=== PATIENT | female | born 1985 | race Caucasian/White ===

== ENCOUNTER 2017-07-21 20:08 | Emergency (ER) | payer OTHER, SELFPAY | END 2017-07-21 20:37 | disposition home or self-care (01) | LOC: SCSER 20:08 | DX: J02.9 Acute pharyngitis, unspecified (principal); H92.01 Otalgia, right ear; I10 Essential (primary) hypertension; F41.9 Anxiety disorder, unspecified; F32.9 Major depressive disorder, single episode, unspecified; Z85.42 Personal history of malignant neoplasm of other parts of uterus | CPT/HCPCS: 87081; 87430; 99283 ==

== ENCOUNTER 2019-12-28 13:00 | Outpatient (CLI) | payer BC | END 2019-12-28 13:01 | disposition home or self-care (01) | LOC: DTY/OP 13:00 | PROVIDERS: ATTEND Specialist | DX: Z01.818 Encounter for other preprocedural examination (principal); E66.01 Morbid (severe) obesity due to excess calories | CPT/HCPCS: 97802 ==

== ENCOUNTER 2020-04-16 07:35 | Outpatient (CLI) | payer BC, OTHER ==
[2020-04-17 14:58] LABS: SARS-CoV-2 MS2 Positive; SARS-CoV-2 N Gene Negative; SARS-CoV-2 S Gene Negative; SARS-CoV-2 by NAA Not Detected (NotDetected); SARS-CoV-2 orf1ab Negative
--- NOTE | 2020-04-17 16:16 | EKG ---
Test Reason : PREOP Blood Pressure : / mmHG Vent. Rate : 070 BPM Atrial Rate : 070 BPM P-R Int : 136 ms QRS Dur : 096 ms QT Int : 402 ms P-R-T Axes : 027 024 043 degrees QTc Int : 434 ms Normal sinus rhythm Normal ECG No previous ECGs available Confirmed by ARINA MARSHALL ([id number]) on 04/17/2020 4:15:45 PM Referred By: Kathe PURVIS Confirmed By:ARINA MARSHALL
== END 2020-04-16 07:36 | disposition home or self-care (01) ==
LOC: LABBT 07:35
PROVIDERS: ATTEND Specialist
DX: Z01.818 Encounter for other preprocedural examination (principal); E66.01 Morbid (severe) obesity due to excess calories; Z68.42 Body mass index [BMI] 45.0-49.9, adult; Z20.828 Contact with and (suspected) exposure to other viral communicable diseases
CPT/HCPCS: 87635; 93005; 93010; U0003

== ENCOUNTER 2020-04-16 10:15 | Inpatient (IN) | payer BC, OTHER ==
[2020-04-17 15:37] VITALS: BMI 49.8
[2020-04-19] MEDS ORDERED: Acetaminophen 500 MG TAB ONE (06:23)
[2020-04-19] MEDS ORDERED: Heparin 5,000 UNITS/ML VIAL ONE (06:23)
[2020-04-19] MEDS ORDERED: cefOXitin Sodium/Dextrose 2 GM/50 ML BAG ONE (06:23)
[2020-04-19] MEDS ORDERED: Scopolamine 1.5 mg/72 hour Patch ONE (06:23)
[2020-04-19] MEDS ORDERED: ceFOXitin 1 GM VIAL ONE (06:23)
[2020-04-19] MEDS ORDERED: Sodium Chloride 0.9% 0 ML ONE (06:23)
[2020-04-19] MEDS ORDERED: Ketorolac Tromethamine 30 MG/ML VIAL ONE (06:23)
[2020-04-19] MEDS ORDERED: Lidocaine 1% w/Epinephrine 1:100K 20 ML VIAL ONE (06:29)
[2020-04-19] MEDS ORDERED: Bupivacaine 0.25% HCL 30 ML VIAL ONE (06:30)
[2020-04-19] MEDS ORDERED: Fentanyl 250 MCG/5 ML VIAL ONE (06:51)
[2020-04-19] MEDS ORDERED: Midazolam HCl 2 mg/2 ml Vial ONE (07:12)
[2020-04-19] MEDS ORDERED: Dextrose 50% Abboject 50 ML SYRINGE SLOW IVP PRN (09:25)
[2020-04-19] MEDS ORDERED: Ondansetron PF 4 MG/2 ML Vial IVP PRN (09:25)
[2020-04-19] MEDS ORDERED: Dextrose 5% in Water 1,000 ML IV PRN (09:25)
[2020-04-19] MEDS ORDERED: Promethazine HCl 25 MG/ML VIAL IM PRN ×2 (09:25→09:42)
[2020-04-19] MEDS ORDERED: Morphine 4 MG/ML VIAL SLOW IVP PRN (09:25)
[2020-04-19] MEDS ORDERED: diphenhydrAMINE 50 MG/ML VIAL IVP PRN (09:25)
[2020-04-19] MEDS ORDERED: Morphine 2 MG/ML VIAL SLOW IVP PRN (09:25)
[2020-04-19] MEDS ORDERED: hydrALAZINE 20 MG/ML VIAL SLOW IVP PRN (09:25)
[2020-04-19] MEDS ORDERED: HYDROmorphone 2 MG/ML VIAL SLOW IVP PRN (09:42)
[2020-04-19] MEDS ORDERED: Promethazine HCl 25 MG/ML VIAL SLOW IVP PRN (09:42)
[2020-04-19] MEDS ORDERED: Meperidine HCl/PF 25 MG/ML VIAL SLOW IVP PRN (09:42)
[2020-04-19] MEDS ORDERED: Ondansetron HCl/PF 4 MG/2 ML Vial IVP PRN (09:42)
[2020-04-19] MEDS ORDERED: Pantoprazole 40 MG VIAL IVP SCH (09:45)
[2020-04-19] MEDS ORDERED: Sodium Chloride 0.9% (PF) 10 ML VIAL FS PRN (09:45)
[2020-04-19] MEDS ORDERED: Fentanyl 100 MCG/2 ML VIAL ONE ×2 (09:49→10:06)
[2020-04-19] MEDS ORDERED: Ondansetron PF 4 MG/2 ML Vial ONE ×2 (09:52→11:02)
[2020-04-19] MEDS ORDERED: Promethazine HCl 25 MG/ML VIAL ONE (10:42)
[2020-04-19] MEDS ORDERED: Succinylcholine Chloride 20 MG/ML 10 ml SYRINGE FS ONE (11:02)
[2020-04-19] MEDS ORDERED: Glycopyrrolate 0.2 MG/ML 5 ML SYRINGE ONE (11:02)
[2020-04-19] MEDS ORDERED: Dexamethasone 20 MG/5 ML VIAL ONE (11:02)
[2020-04-19] MEDS ORDERED: Rocuronium Bromide 10 MG/ML (10ML VIAL) ONE (11:02)
[2020-04-19] MEDS ORDERED: Lidocaine 1% PF 5 ML VIAL ONE (11:02)
[2020-04-19] MEDS ORDERED: PROPOFOL 200 MG/20 ML VIAL ONE (11:02)
[2020-04-19] MEDS: Ketorolac Tromethamine 30 MG/ML VIAL IVP SCH ×2 (12:31→16:52)
[2020-04-19] MEDS: D5 1/2 NS w/20 mEq KCL 1,000 ML IV SCH ×4 (12:31→20:27)
--- NOTE | 2020-04-19 13:33 | OP ---
DATE OF PROCEDURE: 04/19/2020 PREOPERATIVE DIAGNOSIS: Morbid obesity. POSTOPERATIVE DIAGNOSIS: Morbid obesity. PROCEDURE PERFORMED: Laparoscopic vertical sleeve gastrectomy using the ViSiGi Device. J[employer] J2[employer] LEAD: Lakisha Granados, medical student. ANESTHESIA: General endotracheal per Keegan Cohn CRNA. INDICATIONS: The patient is a 34-year-old morbidly obese white female. She presents today for bariatric surgery, having completed preoperative evaluation and education. DESCRIPTION OF OPERATION: Informed consent was obtained. The patient was taken to the operating room where general endotracheal anesthesia was obtained with the patient in supine position. Abdomen was prepped with ChloraPrep and draped in sterile fashion. Local anesthetic was infiltrated and 5 mm supraumbilical incision was created through which Veress needle was passed to the peritoneal cavity and pneumoperitoneum established using carbon dioxide up to a pressure of 15 mmHg. A 5 mm trocar port was passed through this same incision. Laparoscopic camera was passed through this port. Under direct vision, 4 additional ports were placed including bilateral 5 mm subcostal ports, a 12 mm right paramedian port and a 15 mm left paramedian port. A 5 mm epigastric incision was created through which Nathansen retractor was passed into the abdominal cavity and used to retract the left lobe of the liver. The patient was placed into reverse Trendelenburg position. The ViSiGi device was advanced within the stomach and used to decompress this. The pylorus was identified and beginning 4 cm proximal to the pylorus, the omentum and vascular tissue along the greater curvature was divided using the LigaSure in an ascending fashion up to the angle of His. All posterior adhesions were mobilized. The short gastric vessels were carefully divided and then hemostasis was maintained using the LigaSure. Once this was completely mobilized, the ViSiGi was carefully positioned at the level of the pylorus and placed to suction, which was clearly defining the lesser curvature of the stomach. The gastrectomy was then performed using a series of fires of the Thornton stapler using a green load followed by a gold load and a series of blue loads until completion of the gastrectomy. The ViSiGi along the lesser curvature was used as a size 36 bougie to guide in the gastric division. Care was taken to avoid narrowing the incisura or the gastroesophageal junction. The integrity of the staple line was then assessed by insufflating gas through the ViSiGi while irrigating along the staple line. There was no evidence of an air leak. There was no evidence of bleeding along the staple line. The resected stomach was then removed through the 15 mm port and the fascia was closed with 0 Vicryl suture using a GraNee needle. I then closed the 12 mm port also using the GraNee needle and 0 Vicryl suture. The Nathansen retractor was removed. All ports and instruments were removed under direct vision. All irrigant was aspirated. Pneumoperitoneum was carefully evacuated. 0.25% Marcaine with epinephrine was infiltrated into each port site. Skin edges approximated with 4-0 Monocryl subcuticular suture. Dermabond was placed externally. There were no complications. The patient tolerated the procedure well and was taken to recovery room in stable condition. FINDINGS: The patient had some minor adhesions inferior to abdominal wall, but nothing that interfered with the surgery. There was some minor oozing from the superior pole of the spleen after the short gastrics were divided. Marii powder was used to control this successfully. Total blood loss was negligible. She tolerated the procedure well and was taken to recovery room in stable condition. Job ID: [id number]
[2020-04-19] MEDS ORDERED: Prochlorperazine 10 MG/2 ML VIAL IVP PRN (13:50)
[2020-04-19] MEDS: Hydrocodone-Acetamin 15 ML UDCUP PO PRN ×2 (15:03→18:50)
[2020-04-19] MEDS ORDERED: Enoxaparin Sodium 40 MG/0.4 ML SYRINGE SC SCH (21:00)
[2020-04-20] MEDS: Ketorolac Tromethamine 30 MG/ML VIAL IVP SCH ×2 (00:25→05:26)
[2020-04-20 05:23] LABS: #Lymphocytes 1.1 thou/uL (1.20-3.40); #Monocytes 0.7 thou/uL (0.11-0.59); #Neutrophils 5.9 thou/uL (1.40-6.50); %Basophils 0.2 % (0.0-1.0); %Eosinophils 0.1 % (0.0-10.0); %Lymphocytes 14.1 % (21.0-51.0); %Monocytes 8.8 % (0.0-10.0); %Neutrophils 76.8 % (42.0-75.0); Mean Corpuscular Hemoglobin 29.7 pg (27.0-31.0); Mean Corpuscular Volume 87.2 fL (78.0-98.0); Mean Platelet Volume 8.6 fL (7.4-10.4); Platelet Count 233 thou/uL (130-400); RBC Distribution Width 12.2 % (11.5-14.5); Red Blood Cell (RBC) Count 4.05 mill/uL (4.20-5.40); White Blood Cell (WBC) Count 7.6 thou/uL (4.8-10.8)
[2020-04-20 05:43] LABS: Anion Gap 11 mmol/L (10-20); BUN (Urea Nitrogen) 7 mg/dL (7.0-18.7); Calc. Creatinine Clearance 196 mL/min (70-130); Calcium 8.7 mg/dL (7.8-10.44); Carbon Dioxide 21 mmol/L (22-29); Chloride 110 mmol/L (98-107); Estimated GFR-MDRD 78; Glucose 125 mg/dL (70-105); Potassium 4.1 mmol/L (3.5-5.1); Sodium 138 mmol/L (136-145)
--- NOTE | 2020-04-20 07:46 | PDOC.GSPN ---
Surgery Progress Note: Subj - Subjective Patient reports: positive flatus, tolerating liquids well, voiding w/o difficult y (Ms. Swartz is a 34 year old morbidly obese female who is POD 1 for LSG. Patient stated she is doing well and tolerating her liquid diet. Patient stated her pain has been well controlled with her medication, but pain is rated at a 7 out of 10 currently while waiting for the next dose of pain medication), nausea, no bowel movement, still having pain Surgery Progress Note: Obj - Vital signs Vital signs: Vital Signs - Most Recent Temp Pulse Resp BP Pulse Ox 98.3 F 67 18 105/70 97 04/20/20 04:00 04/20/20 04:00 04/20/20 04:00 04/20/20 04:00 04/20/20 04:00 - Physical Exam General: no distress, well nourished, moderate pain, obese ENT: no congestion, no hearing loss, normal nares Cardiovascular: regular rate and rhythm Respiratory: clear to auscultation, normal respiratory effort, breath sounds present Abdomen: positive bowel sounds Psychiatric: memory intact, oriented to time, oriented to person, oriented to place, speech is normal Wound: healing well Surgery Progress Note: Results - Labs Result Diagrams: 04/20/20 04:55 04/20/20 04:55 Lab results: Laboratory Results - last 24 hr 04/20/20 04/20/20 04:55 04:55 WBC 7.6 RBC 4.05 L Hgb 12.0 Hct 35.3 L MCV 87.2 MCH 29.7 MCHC 34.0 RDW 12.2 Plt Count 233 MPV 8.6 Neutrophils % 76.8 H Lymphocytes % 14.1 L Monocytes % 8.8 Eosinophils % 0.1 Basophils % 0.2 Neutrophils # 5.9 Lymphocytes # 1.1 L Monocytes # 0.7 H Eosinophils # 0.0 Basophils # 0.0 Sodium 138 Potassium 4.1 Chloride 110 H Carbon Dioxide 21 L Anion Gap 11 BUN 7 Creatinine 0.83 Estimated GFR (MDRD) 78 Glucose 125 H Calcium 8.7 Surgery Progress Note: A/P - Problem (1) Morbid obesity Current Visit: Yes Code(s): E66.01 - MORBID (SEVERE) OBESITY DUE TO EXCESS CALORIES Status: Chronic (2) S/P laparoscopic sleeve gastrectomy Current Visit: Yes Code(s): Z98.84 - BARIATRIC SURGERY STATUS Status: Acute - Plan Plan: Ms. Swartz is is a 34 year old morbidly obese female POD 1 for LSG. Patient is recovering well from surgery and is in no acute distress. 1. Continue patient on DVT prophylaxis: enoxaparin, SCDs, and promoting ambulation. 2. Continue patient on liquid diet 3. Continue to monitor patient's pain level and control with PRN/scheduled pain medications 4. Patient can be discharged today as she is able to ambulate, maintain hydration, and tolerate her medication 5. Before discharge review proper LSG diet and follow up in clinic in one month
[2020-04-20] MEDS ORDERED: Pantoprazole 40 MG VIAL IVP SCH (09:00)
[2020-04-20 11:31] VITALS: BP 104/71; TEMP 97.8
[2020-04-20] MEDS: Hydrocodone-Acetamin 15 ML UDCUP PO PRN (11:36)
== END 2020-04-20 13:05 | disposition home or self-care (01) | DRG 621 ==
LOC: SURG A 04-19 05:59 → SJJU 04-19 11:10
PROVIDERS: ADMIT Specialist; ATTEND Specialist
PROC: 0DB64Z3 Excision of Stomach, Percutaneous Endoscopic Approach, Vertical (ICD-10-PCS; principal; 2020-04-19)
DX: E66.01 Morbid (severe) obesity due to excess calories (principal); Z68.42 Body mass index [BMI] 45.0-49.9, adult; Z90.710 Acquired absence of both cervix and uterus; Z20.828 Contact with and (suspected) exposure to other viral communicable diseases
CPT/HCPCS: 36415; 80048; 85025; 87635; 88307; 88312; 93005; 94760; C9113; J0694; J1100; J1644; J1650; J1885; J2250; J2270; J2405; J2550; J2704; J3010; J3480; J3490; S0020; U0003

== ENCOUNTER 2024-07-20 16:21 | Inpatient (IN) | payer BC ==
[~2024-07-20 16:21] MED LIST: Iopamidol-370 76% 500 ML MDV (1 ML CHARGE) ONE
[2024-07-20 17:42] LABS: #Basophils 0.03 10x3/uL (0.0-0.2); %Basophils 0.6 % (0.0-1.0); %Lymphocytes 24.9 % (21.0-51.0); %Neutrophils 64.3 % (42.0-75.0); Hematocrit 39.7 % (36.0-47.0); Hemoglobin 14.1 g/dL (12.0-16.0); Mean Corpuscular HGB CONC 35.5 g/dL (32.0-36.0); Mean Corpuscular Hemoglobin 29.1 pg (27.0-31.0); Mean Corpuscular Volume 81.9 fL (78.0-98.0); Mean Platelet Volume 10.3 fL (7.4-10.4); Platelet Count 266 10x3/uL (130-400); RBC Distribution Width 11.9 % (11.5-14.5); Red Blood Cell (RBC) Count 4.85 mill/uL (4.20-5.40)
[2024-07-20 17:54] LABS: BHCG - Serum Negative (NEGATIVE)
[2024-07-20 17:55] LABS: Pregs Control Background? CLEAR/WHITE (CLR/WHITE); Pregs Control Bar Appear? YES (CONTROL BAR)
[2024-07-20 18:01] LABS: ALT (SGPT) 150 U/L (8-55); AST (SGOT) 181 U/L (5-34); Albumin 4.2 g/dL (3.5-5.0); Alkaline Phosphatase 97 U/L (40-110); Anion Gap 12 mmol/L (10-20); BUN (Urea Nitrogen) 10 mg/dL (7.0-18.7); Bilirubin, Total 2.1 mg/dL (0.2-1.2); Calc. Creatinine Clearance 0 mL/min (70-130); Calcium 9.6 mg/dL (7.8-10.44); Carbon Dioxide 25 mmol/L (22-29); Chloride 108 mmol/L (98-107); Estimated GFR 95; Globulin 3.5 g/dL (2.4-3.5); Glucose 79 mg/dL (70-105); Lipase 77 U/L (8-78); Potassium 3.6 mmol/L (3.5-5.1); Protein, Total 7.7 g/dL (6.0-8.3); Sodium 141 mmol/L (136-145)
[2024-07-20] MEDS ORDERED: Morphine 4 MG/ML VIAL ONE (18:19)
[2024-07-20] MEDS ORDERED: Ondansetron PF 4 MG/2 ML Vial ONE (18:19)
[2024-07-20] MEDS ORDERED: Piperacillin/Tazobactam 4.5 GM VIAL ONE (19:32)
[2024-07-20] MEDS ORDERED: Sodium Chloride 0.9% 100 ML ONE (19:32)
[2024-07-20] MEDS ORDERED: Morphine 2 MG/ML VIAL SLOW IVP PRN (19:48)
[2024-07-20 20:07] LABS: Bacteria/HPF None Seen HPF (None Seen); Bilirubin Negative (Negative); Blood, Urine Negative (Negative); CAUTI Indications for Culture Pelvic or flank pain; Clarity Clear (Clear); Glucose, Urine (Dipstick) Normal (Negative); Ketone, Urine 40 mg/dL (Negative); Leukocyte Negative Leu/uL (Negative); Nitrite Negative (Negative); Protein, Urine (Dipstick) 10 mg/dL (Neg-Trace); RBC/HPF 0-3 HPF (0-3); Squamous Epithelial 0-3 HPF (0-3); WBC/HPF 0-3 HPF (0-3)
[2024-07-20 20:08] LABS: Specific Gravity, Urine Greater than 1.060 (1.002-1.036)
[2024-07-20 20:09] LABS: Urine Culture Reflex No No
[2024-07-20] MEDS: Famotidine 20 MG TAB PO SCH (22:46)
[2024-07-20] MEDS: Sodium Chloride 0.9% 1,000 ML IV SCH (22:47)
[2024-07-20] MEDS: Morphine 4 MG/ML VIAL SLOW IVP PRN (22:47)
[2024-07-20] MEDS: Piperacillin/Tazobactam 3.375 GM in Sodium Chloride 0.9% 100 ML IVPB SCH (22:47)
[2024-07-20] MEDS: Ondansetron PF 4 MG/2 ML Vial IVP PRN (22:52)
[2024-07-21 00:34] VITALS: BMI 32.1
[2024-07-21] MEDS: traMADol HCl 50 MG TAB PO SCH (01:16)
[2024-07-21 06:32] LABS: INR-International Normal Ratio 1.1
[2024-07-21 06:38] LABS: ALT (SGPT) 399 U/L (8-55); AST (SGOT) 738 U/L (5-34); Albumin 3.3 g/dL (3.5-5.0); Alkaline Phosphatase 169 U/L (40-110); Anion Gap 11 mmol/L (10-20); BUN (Urea Nitrogen) 7 mg/dL (7.0-18.7); Bilirubin, Total 3.1 mg/dL (0.2-1.2); Calc. Creatinine Clearance 132 mL/min (70-130); Calcium 8.5 mg/dL (7.8-10.44); Carbon Dioxide 23 mmol/L (22-29); Chloride 110 mmol/L (98-107); Estimated GFR 98; Globulin 2.7 g/dL (2.4-3.5); Glucose 69 mg/dL (70-105); Potassium 2.9 mmol/L (3.5-5.1); Sodium 141 mmol/L (136-145)
[2024-07-21] MEDS ORDERED: Indocyanine Green 25 MG/10 ML VIAL IVP SCH (07:15)
[2024-07-21] MEDS: Potassium Chloride 20 MEQ in Premix 1 BAG IVPB SCH ×2 (07:52→16:43)
[2024-07-21] MEDS ORDERED: Indocyanine Green 25 MG/10 ML VIAL ONE ×2 (11:14→11:40)
[2024-07-21] MEDS ORDERED: Bupivacaine 0.25% HCL 30 ML VIAL ONE (11:40)
[2024-07-21] MEDS ORDERED: EPINEPHrine 1 MG/ML VIAL ONE (11:40)
[2024-07-21] MEDS ORDERED: fentaNYL PF 100 MCG/2 ML SYRINGE ONE (12:15)
[2024-07-21] MEDS ORDERED: Midazolam HCl 2 mg/2 ml Vial ONE (12:16)
[2024-07-21] MEDS ORDERED: PROPOFOL 20 ML ONE ×2 (12:16→12:54)
[2024-07-21] MEDS ORDERED: Indomethacin 50 MG SUPP ONE (12:32)
[2024-07-21] MEDS ORDERED: Rocuronium Bromide 10 MG/ML (10ML VIAL) ONE (12:33)
[2024-07-21] MEDS ORDERED: Lidocaine 1% PF 5 ML VIAL ONE (12:33)
[2024-07-21] MEDS ORDERED: Glucagon 1 MG/ML KIT ONE (12:34)
[2024-07-21] MEDS ORDERED: Iopamidol 30 ML ONE (12:34)
[2024-07-21] MEDS ORDERED: Dexamethasone 20 MG/5 ML VIAL ONE (12:43)
[2024-07-21] MEDS ORDERED: Ondansetron PF 4 MG/2 ML Vial ONE ×2 (12:43→15:10)
[2024-07-21 12:52] VITALS: BMI 32.1
[2024-07-21] MEDS ORDERED: fentaNYL 50 mcg/mL 1 mL Vial ONE ×4 (13:24→16:15)
[2024-07-21] MEDS ORDERED: cefOXitin 2 GM VIAL ONE (13:25)
[2024-07-21] MEDS ORDERED: Ketorolac Tromethamine 30 MG (1 mL) VIAL ONE (14:31)
[2024-07-21] MEDS ORDERED: SUGAMMADEX SODIUM 200 MG/2 ML VIAL ONE (14:56)
[2024-07-21] MEDS ORDERED: Morphine 4 MG/ML VIAL ONE (15:44)
[2024-07-21] MEDS ORDERED: Morphine 2 MG/ML VIAL ONE (15:54)
[2024-07-21] MEDS: traMADol HCl 50 MG TAB PO PRN (20:37)
[2024-07-21] MEDS ORDERED: ALPRAZolam 0.25 MG TAB PO PRN (23:30)
[2024-07-22] MEDS: busPIRone HCl 5 MG TAB PO SCH (00:41)
[2024-07-22] MEDS: FLUoxetine HCl 20 MG CAP PO SCH (00:41)
[2024-07-22 05:16] LABS: #Basophils Less than 0.03 10x3/uL (0.0-0.2); #Eosinophils Less than 0.03 10x3/uL (0.0-0.7); %Lymphocytes 7.3 % (21.0-51.0); %Monocytes 6.9 % (0.0-10.0); %Neutrophils 85.6 % (42.0-75.0); Hematocrit 32.7 % (36.0-47.0); Hemoglobin 11.3 g/dL (12.0-16.0); Mean Corpuscular HGB CONC 34.6 g/dL (32.0-36.0); Mean Corpuscular Hemoglobin 29.4 pg (27.0-31.0); Mean Corpuscular Volume 85.2 fL (78.0-98.0); Mean Platelet Volume 10.5 fL (7.4-10.4); Platelet Count 192 10x3/uL (130-400); RBC Distribution Width 12.1 % (11.5-14.5); Red Blood Cell (RBC) Count 3.84 mill/uL (4.20-5.40)
[2024-07-22 05:38] LABS: ALT (SGPT) 692 U/L (8-55); AST (SGOT) 879 U/L (5-34); Albumin 3.2 g/dL (3.5-5.0); Alkaline Phosphatase 233 U/L (40-110); Anion Gap 11 mmol/L (10-20); BUN (Urea Nitrogen) 5 mg/dL (7.0-18.7); Bilirubin, Total 2.2 mg/dL (0.2-1.2); Calc. Creatinine Clearance 140 mL/min (70-130); Calcium 8.7 mg/dL (7.8-10.44); Carbon Dioxide 20 mmol/L (22-29); Chloride 112 mmol/L (98-107); Estimated GFR 105; Globulin 2.8 g/dL (2.4-3.5); Glucose 99 mg/dL (70-105); Potassium 4.4 mmol/L (3.5-5.1); Sodium 139 mmol/L (136-145)
[2024-07-22 07:50] VITALS: BP 105/73; TEMP 98.7
[2024-07-22] MEDS ORDERED: Amoxicillin/Potassium Clav 875 MG TAB PO SCH (09:00)
[2024-07-22] MEDS ORDERED: busPIRone HCl 10 MG TAB PO SCH (09:00)
[2024-07-22] MEDS ORDERED: FLUoxetine HCl 20 MG CAP PO SCH (21:00)
== END 2024-07-22 08:34 | disposition home or self-care (01) | DRG 419 ==
LOC: ERS 16:21 → SURG A 19:48
PROVIDERS: ADMIT Surgery; ATTEND Surgery
PROC: 0FT44ZZ Resection of Gallbladder, Percutaneous Endoscopic Approach (ICD-10-PCS; principal; 2024-07-21)
PROC: 0FC98ZZ Extirpation of Matter from Common Bile Duct, Via Natural or Artificial Opening Endoscopic (ICD-10-PCS; 2024-07-21)
PROC: 8E0W4CZ Robotic Assisted Procedure of Trunk Region, Percutaneous Endoscopic Approach (ICD-10-PCS; 2024-07-21)
DX: K80.66 Calculus of gallbladder and bile duct with acute and chronic cholecystitis without obstruction (principal); F41.9 Anxiety disorder, unspecified; F31.9 Bipolar disorder, unspecified; Z79.899 Other long term (current) drug therapy; Z88.8 Allergy status to other drugs, medicaments and biological substances; Z90.710 Acquired absence of both cervix and uterus; Z85.42 Personal history of malignant neoplasm of other parts of uterus
CPT/HCPCS: 36415; 74177; 74330; 76705; 80053; 81001; 83605; 83690; 84703; 85025; 85610; 85730; 87040; 88304; 96361; 96365; 96375; A6258; C1713; J0171; J0665; J0694; J1100; J1611; J1885; J2250; J2272; J2405; J2543; J2704; J3010; J3480; J7030; Q9967; S2900

== ENCOUNTER 2025-03-06 12:37 | Outpatient (CLI) | payer BC | END 2025-03-06 12:38 | disposition home or self-care (01) | LOC: BICMAMMO 12:37 | PROVIDERS: ATTEND Family Medicine | DX: Z12.31 Encounter for screening mammogram for malignant neoplasm of breast (principal) | CPT/HCPCS: 77063; 77067 ==